=== PATIENT | male | born 1985 | race Caucasian/White ===

== ENCOUNTER 2016-12-04 18:32 | Emergency (ER) | payer OTHER ==
[2016-12-04 18:46] VITALS: BP 151/69; PULSE 75; RESP 18; TEMP 98.4
[2016-12-04] MEDS ORDERED: DIPH,PERTUS(ACELL)TETVAC-LF 0.5 ML VIAL IM ONE (19:23)
--- NOTE | 2016-12-04 19:51 | ED ---
Wound/Laceration HPI - General Chief Complaint: Wound/Laceration Stated Complaint: right forearm lac Time Seen by Provider: 12/04/16 19:21 Source: patient, RN notes reviewed Mode of arrival: ambulatory Limitations: no limitations - History of Present Illness Initial Comments: 31-year-old male presents emergency month to complaint right forearm laceration. Patient states he was working on his truck states that he slipped putting his forearm on the plastic piece. Patient states he is unsure when his last tetanus was. Patient's full range of motion of all digits and denies any paresthesias. Review of Systems ROS Statement: Those systems with pertinent positive or pertinent negative responses have been documented in the HPI. ROS Other: All systems not noted in ROS Statement are negative. Past Medical History Past Medical History: No Reported History History of Any Multi-Drug Resistant Organisms: None Reported Past Surgical History: No Surgical Hx Reported Past Psychological History: No Psychological Hx Reported Smoking Status: Current every day smoker Past Alcohol Use History: Occasional Past Drug Use History: Marijuana General Exam Limitations: no limitations General appearance: alert, in no apparent distress Head exam: Present: atraumatic, normocephalic, normal inspection Respiratory exam: Present: normal lung sounds bilaterally. Absent: respiratory distress, wheezes, rales, rhonchi, stridor Cardiovascular Exam: Present: regular rate, normal rhythm, normal heart sounds. Absent: systolic murmur, diastolic murmur, rubs, gallop, clicks Extremities exam: Present: other (8 cm laceration of the right forearm does not involve muscle layer patient's full range of motion of the right hand, wrist neurovascular intact) Course Vital Signs 12/04/16 18:41 Temperature 98.4 F Pulse Rate 75 Respiratory 18 Rate Blood Pressure 151/69 O2 Sat by Pulse 98 Oximetry Procedures - Laceration Laceration #1 Consent Obtained: verbal consent Indication: laceration Site: upper extremity (Right forearm) Size (cm): 8 Description: linear Depth: simple, single layer Anesthetic Used: lidocaine 1%, without epi Anesthesia Technique: local infiltration Amount (mls): 6 Pre-repair: wound explored, irrigated extensively, deep structures intact Type of Sutures: nylon Size of Sutures: 4-0 Number of Sutures: 12 Technique: simple, interrupted Patient Tolerated Procedure: well, no complications Medical Decision Making - Medical Decision Making 31-year-old male present emergency from for right forearm laceration. Patient' s laceration was closed using 12 sutures. Wound care and return parameters were discussed. Disposition Clinical Impression: Laceration of right forearm Disposition: HOME SELF-CARE Condition: Stable Instructions: Care For Your Stitches (ED), Laceration (ED) Additional Instructions: Have sutures removed in 10 days.Please return to the Emergency Department if symptoms worsen or any other concerns. Referrals: None,Stated [Primary Care Provider] - 1-2 days Time of Disposition: 19:50
== END 2016-12-04 20:02 | disposition home or self-care (01) ==
LOC: EC 18:32
DX: S51.811A Laceration without foreign body of right forearm, initial encounter (principal); F17.200 Nicotine dependence, unspecified, uncomplicated; Z23 Encounter for immunization; W45.8XXA Other foreign body or object entering through skin, initial encounter; Y93.89 Activity, other specified
CPT/HCPCS: 12004; 90471; 90715; 99282

== ENCOUNTER 2019-02-05 21:15 | Emergency (ER) | payer OTHER ==
[2019-02-05 21:23] VITALS: BP 151/82; PULSE 88; RESP 18; TEMP 98
[2019-02-05] MEDS ORDERED: KETOROLAC 60 MG/2 ML VIAL IM STA (22:00)
--- NOTE | 2019-02-05 22:20 | XR ---
EXAMINATION TYPE: XR chest 2V DATE OF EXAM: 02/05/2019 COMPARISON: NONE HISTORY: Cough and congestion TECHNIQUE: Frontal and lateral views of the chest are obtained. FINDINGS: Heart and mediastinum are normal. There is some infiltrate in the right middle lobe best s een on the lateral view over the heart. The other lung mckeon are clear. Diaphragm is normal. Bony th orax appears normal. IMPRESSION: Mild right middle lobe pneumonia.
--- NOTE | 2019-02-05 22:21 | XR ---
EXAMINATION TYPE: XR foot complete RT DATE OF EXAM: 02/05/2019 COMPARISON: NONE HISTORY: Pain TECHNIQUE: 3 views FINDINGS: Metatarsals are intact. I see no fracture nor dislocation. Joint spaces are normal. There a re no erosions. IMPRESSION: Negative right foot exam.
--- NOTE | 2019-02-05 22:21 | XR ---
EXAMINATION TYPE: XR ankle complete RT DATE OF EXAM: 02/05/2019 COMPARISON: NONE HISTORY: Ankle pain TECHNIQUE: 3 views FINDINGS: Ankle mortise is anatomic. I see no fracture nor dislocation. Joint spaces are normal. IMPRESSION: Negative right ankle exam. No fracture.
[2019-02-05] MEDS ORDERED: cefTRIAXone 1,000 MG VIAL (IM USE) IM STA (22:28)
[2019-02-05] MEDS ORDERED: AZITHROMYCIN 500 MG TAB PO STA (22:28)
--- NOTE | 2019-02-05 23:05 | ED ---
General Adult HPI - General Chief complaint: Extremity Injury, Lower Stated complaint: Right Foot Injury Time Seen by Provider: 02/05/19 21:33 Source: patient, RN notes reviewed, old records reviewed Mode of arrival: ambulatory Limitations: no limitations - History of Present Illness Initial comments: 33-year-old male patient presents to the chief complaint of left foot and ankle injury. Patient reports that he was attempting tissue his dog off of the porch today when he slipped fell backwards. Patient reports to his left foot and ankle as he was coming down. Patient reports that he had some swelling and pain in the dorsal aspect of his foot. However he iced it and it resolved. Has been ambulatory today. Patient reports that he sat down and then his ankle and foot began to bother him again. Patient also reports states had a cough for one week. Denies any other complaints. Systemic: Pt denies fatigue, fever/chills, rash. Pt denies weakness, night sweats, weight loss. Neuro: Pt denies headache, visual disturbances, syncope or pre-syncope. HEENT: Pt denies ocular discharge or irritation, otalgia, rhinorrhea, pharyngitis or notable lymphadenopathy. Cardiopulmonary: Pt denies chest pain, SOB, heart palpitations, dyspnea on exertion. Abdominal/GI: Pt denies abdominal pain, n/v/d. : Pt denies dysuria, burning w/ urination, frequency/urgency. Denies new onset urinary or bowel incontinence. MSK: Pt denies myalgia, loss of strength or function in extremities. Neuro: Pt denies new onset weakness, paresthesias. - Related Data Previous Rx's Medication Instructions Recorded Azithromycin [Zithromax Z-pack] 0 mg PO DIRECTED #6 tab 02/05/19 Allergies Allergy/AdvReac Type Severity Reaction Status Date / Time No Known Allergies Allergy Verified 02/05/19 21:23 Review of Systems ROS Statement: Those systems with pertinent positive or pertinent negative responses have been documented in the HPI. ROS Other: All systems not noted in ROS Statement are negative. Past Medical History Past Medical History: No Reported History History of Any Multi-Drug Resistant Organisms: None Reported Past Surgical History: No Surgical Hx Reported Past Psychological History: No Psychological Hx Reported Smoking Status: Current every day smoker Past Alcohol Use History: Occasional Past Drug Use History: Marijuana General Exam - General Exam Comments Initial Comments: Constitutional: NAD, AOX3, Pt has pleasant affect. HEENT: NC/AT, trachea midline, neck supple, no lymphadenopathy. Posterior pharynx non erythematous, without exudates. External ears appear normal, without discharge. Mucous membranes moist. Eyes PERRLA, EOM intact. There is no scleral icterus. No pallor noted. Cardiopulmonary: RRR, no murmurs, rubs or gallops, no JVD noted. Lungs CTAB in anterior and posterior mckeon. No peripheral edema. Abdominal exam: Abdomen soft and non-distended. Abdomen non-tender to palpation in all 4 quadrants. Bowel sounds active in LLQ. No hepatosplenomegaly. No ecchymosis Neuro: CN II-XII grossly intact. No nuchal rigidity. No raccon eyes, no vasquez sign, no hemotympanum. No cervical spinal tenderness. MSK: Dorsal aspect of left foot mild tenderness to palpation. Lateral malleolus nontender palpation. Patient able to bear weight with antalgic gait. Neurovascularly intact. No skin changes. No posterior calf tenderness bilaterally, homans sign negative bilaterally. Posterior tibialis and radial pulse +2 bilaterally. Sensation intact in upper and lower extremities. Full active ROM in upper and lower extremities, 5/5 stregnth. Limitations: no limitations Course Vital Signs 02/05/19 21:21 Temperature 98.0 F Pulse Rate 88 Respiratory 18 Rate Blood Pressure 151/82 O2 Sat by Pulse 99 Oximetry Medical Decision Making - Medical Decision Making 33-year-old male patient presents to the chief complaint of left foot and ankle injury. One week of cough. Patient vital signs are stable, afebrile. Physical exam slight dorsal aspect of the ankle mild tenderness to palpation. Plain films of the ankle and foot were negative. Chest x-ray didn't display a right middle lobe pneumonia. Patient Rocephin and azithromycin ED. Will be discharged with azithromycin. Patient follow up with primary care provider 1-2 day. Patient placed in ankle stirrup. Will follow up with PCP tomorrow and orthopedic consult if symptoms persist. Csae discussed with Dr. Joaquin. Disposition Clinical Impression: Foot sprain, Ankle sprain, Community acquired pneumonia Disposition: HOME SELF-CARE Condition: Stable Instructions (If sedation given, give patient instructions): Ankle Sprain (ED), Community Acquired Pneumonia (ED), Foot Sprain (ED) Additional Instructions: Follow-up with primary care provider tomorrow. Return to ER if condition worsens. Take antbiotics as directed. Continue to wear ankle stirrup. Bear weight as tolerated. Follow up with orthopedic consult if symptoms persist. Prescriptions: Azithromycin [Zithromax Z-pack] 0 mg PO DIRECTED #6 tab Is patient prescribed a controlled substance at d/c from ED?: No Referrals: None,Stated [Primary Care Provider] - 1-2 days Az Herman, [Doctor of Osteopathic Medicine] - 1-2 days
== END 2019-02-05 23:18 | disposition home or self-care (01) ==
LOC: EC 21:15
DX: S93.401A Sprain of unspecified ligament of right ankle, initial encounter (principal); S93.601A Unspecified sprain of right foot, initial encounter; J18.9 Pneumonia, unspecified organism; F17.200 Nicotine dependence, unspecified, uncomplicated; W01.0XXA Fall on same level from slipping, tripping and stumbling without subsequent striking against object, initial encounter
CPT/HCPCS: 73610; 73630; 71046; 99284; 29515; 96372 ×2; L4350; J0696; J1885

== ENCOUNTER 2022-06-21 11:06 | Emergency (ER) | payer OTHER ==
[2022-06-21 11:20] VITALS: BP 139/81; PULSE 61; RESP 20; TEMP 98.1
[2022-06-21] MEDS ORDERED: LIDOCAINE 1% INJ 10MG/ML (30 ML VIAL-PF) SQ ONE (11:21)
[2022-06-21] MEDS ORDERED: ceFAZolin 1,000 MG VIAL (IM USE) IM STA (11:34)
[2022-06-21] MEDS ORDERED: BACITRACIN OINT 1 EACH PACKET TOPICAL ONE (11:34)
--- NOTE | 2022-06-21 11:51 | XR ---
Exam: Left finger 3 views Date: 06/21/2022 Comparison: None Clinical History: Nail through left index finger Technique: 3 views of the left index finger were obtained per protocol. Findings: The proximal, middle, and distal second digit phalanges are intact. There is no radiopaque foreign collin dy. There are no erosive changes or periostitis. There is no dislocation. There are no significant de generative changes. Impression: No acute fracture or radiopaque foreign body.
--- NOTE | 2022-06-21 12:01 | ED ---
Upper Extremity HPI - General Chief Complaint: Extremity Injury, Upper Stated Complaint: foreign object - lt hand finger Time Seen by Provider: 06/21/22 11:21 Source: patient, RN notes reviewed Mode of arrival: ambulatory Limitations: no limitations - History of Present Illness Initial Comments: 36-year-old male presents emergency Department chief complaint nail in his left hand index finger. Patient states that his tetanus is up-to-date last 5 years. He was seen at urgent care sent here for further evaluation. Patient denies any paresthesias patient offers no complaints. - Related Data Previous Rx's Medication Instructions Recorded Azithromycin [Zithromax Z-pack (6 0 mg PO DIRECTED #6 tab 02/05/19 tabs)] Cephalexin [Keflex] 500 mg PO Q6HR #28 cap 06/21/22 Allergies Allergy/AdvReac Type Severity Reaction Status Date / Time No Known Allergies Allergy Verified 06/21/22 11:20 Review of Systems ROS Statement: Those systems with pertinent positive or pertinent negative responses have been documented in the HPI. ROS Other: All systems not noted in ROS Statement are negative. Past Medical History Past Medical History: No Reported History History of Any Multi-Drug Resistant Organisms: None Reported Past Surgical History: No Surgical Hx Reported Past Psychological History: No Psychological Hx Reported Smoking Status: Never smoker Past Alcohol Use History: Occasional Past Drug Use History: Marijuana General Exam Limitations: no limitations General appearance: alert, in no apparent distress Head exam: Present: atraumatic, normocephalic, normal inspection Respiratory exam: Present: normal lung sounds bilaterally. Absent: respiratory distress, wheezes, rales, rhonchi, stridor Cardiovascular Exam: Present: regular rate, normal rhythm, normal heart sounds. Absent: systolic murmur, diastolic murmur, rubs, gallop, clicks Extremities exam: Present: other (Left hand second digit distal portion there is small nail protruding through both sides of the finger, cap refill less than 2 seconds) Course Vital Signs 06/21/22 11:19 Temperature 98.1 F Pulse Rate 61 Respiratory 20 Rate Blood Pressure 139/81 O2 Sat by Pulse 99 Oximetry Procedures - Forgein Body Removal Soft Tissue Consent Obtained: verbal consent Site: hand (Left hand second digit) Anesthetic Used: lidocaine 1%, without epi Amount (mLs): 3 Foreign Body Suspected: Metal Foreign Body Removed: yes Foreign Body Removal Technique: Instrumentation Patient Tolerated Procedure: well, no complications Additional Comments: Finger was thoroughly irrigated, bacitracin applied Medical Decision Making - Medical Decision Making Was pt. sent in by a medical professional or institution ([facility], [employer], urgent care, hospital, or penitentiary...) When possible be specific @ -Urgent care sent in for evaluation Did you speak to anyone other than the patient for history (EMS, parent, family, police, friend...)? What history was obtained from this source @ -No Did you review nursing and triage notes (agree or disagree)? Why? @ -I reviewed and agree with nursing and triage notes Were old charts reviewed (outside hosp., previous admission, EMS record, old EKG , old radiological studies, urgent care reports/EKG's, penitentiary records)? Report findings @ -No old charts were reviewed Differential Diagnosis (chest pain, altered mental status, abdominal pain women, abdominal pain men, vaginal bleeding, weakness, fever, dyspnea, syncope, headache, dizziness, GI bleed, back pain, seizure, CVA, palpatations, mental health, musculoskeletal)? @ -Finger foreign body, finger fracture EKG interpreted by me (3pts min.). @ -None X-rays interpreted by me (1pt min.). @ -X-ray finger after foreign body removal no acute osseous abnormality CT interpreted by me (1pt min.). @ -None done U/S interpreted by me (1pt. min.). @ -None done What testing was considered but not performed or refused? (CT, X-rays, U/S, labs)? Why? @ -None What meds were considered but not given or refused? Why? @ -None Did you discuss the management of the patient with other professionals (professionals i.e. [facility], [employer], lab, RT, psych nurse, administrator social welfare, new car driver, teacher, contact officer, case aide)? Give summary @ -No Was smoking cessation discussed for >3mins.? @ -No Was critical care preformed (if so, how long)? @ -No Were there social determinants of health that impacted care today? How? (Homelessness, low income, unemployed, alcoholism, drug addiction, transportation, low edu. Level, literacy, decrease access to med. care, fpc, rehab)? @ -No Was there de-escalation of care discussed even if they declined (Discuss DNR or withdrawal of care, Hospice)? DNR status @ -No What co-morbidities impacted this encounter? (DM, HTN, Smoking, COPD, CAD, Cancer, CVA, ARF, Chemo, Hep., AIDS, mental health diagnosis, sleep apnea, morbid obesity)? @ -None Was patient admitted / discharged? Hospital course, mention meds given and route, prescriptions, significant lab abnormalities, going to OR and other pertinent info. @ -Discharge foreign body was removed with no complication, tetanus is up-to-date, patient was given Kefzol, patient discharged with Keflex and return parameters were discussed. Fingers neurovascularly intact after procedure. Undiagnosed new problem with uncertain prognosis? @ -No Drug Therapy requiring intensive monitoring for toxicity (Heparin, Nitro, Insulin, Cardizem)? @ -No Were any procedures done? @ -No Diagnosis/symptom? @ -Nail in finger Acute, or Chronic, or Acute on Chronic? @ -Acute Uncomplicated (without systemic symptoms) or Complicated (systemic symptoms)? @ -Uncomplicated Side effects of treatment? @ -No Exacerbation, Progression, or Severe Exacerbation? @ -No Poses a threat to life or bodily function? How? (Chest pain, [place], OR, pneumonia, PE, COPD, DKA, ARF, appy, cholecystitis, CVA, Diverticulitis, Homicidal, Suicidal, threat to staff... and all critical care pts) @ -No Disposition Clinical Impression: Puncture wound of skin from metal nail Disposition: HOME SELF-CARE Condition: Stable Instructions (If sedation given, give patient instructions): Soft Tissue Foreign Body (ED) Additional Instructions: Please return to the Emergency Department if symptoms worsen or any other concerns. Prescriptions: Cephalexin [Keflex] 500 mg PO Q6HR #28 cap Is patient prescribed a controlled substance at d/c from ED?: No Referrals: None,Stated [Primary Care Provider] - 1-2 days Time of Disposition: 12:00
== END 2022-06-21 12:23 | disposition home or self-care (01) ==
LOC: EC 11:06
DX: S61.341A Puncture wound with foreign body of left index finger with damage to nail, initial encounter (principal); F12.90 Cannabis use, unspecified, uncomplicated; W45.0XXA Nail entering through skin, initial encounter
CPT/HCPCS: 73140; 99283; 96372; J0690; J2001